=== PATIENT | female | born 1945 | race Caucasian/White ===

== ENCOUNTER 2017-01-18 19:09 | Emergency (ER) | payer OTHER, MEDICARE ==
[2017-01-18 19:33] VITALS: PULSE 60; TEMP 97.8; BMI 29.2
--- NOTE | 2017-01-18 20:14 | PDOC ---
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 The patient was laying down when she had a sudden onset of dizziness that felt as if the room was spinning. Patient endorses nausea and feeling as if she was going to faint. The patient states that she's been feeling better since being in the ED; she's never had this type of dizziness before. Denies any vomiting, LOC, head trauma, headache, weakness, numbness, tingling, slurred speech, confusion, or visual changes. PMD: Roxane Polanco MD ([facility]; [phone]) <Kristy Rojas - Last Filed: 01/18/17 21:11> <Светлана Jaramillo - Last Filed: 01/19/17 02:19> - General Stated Complaint: DIZZINESS Time Seen by Provider: 01/18/17 19:21 Past History <Kristy Rojas - Last Filed: 01/18/17 21:11> - Past Medical History Other medical history: Paris's Palsy for 15 yearswith residual lasting left sided facial droop. - Immunization History Immunization Up to Date: Yes - Psycho/Social/Smoking Cessation Hx Suicidal Ideation: No Smoking History: Former smoker Have you smoked in the past 12 months: No Information on smoking cessation initiated: No Hx Alcohol Use: No Drug/Substance Use Hx: No <Светлана Jaramillo - Last Filed: 01/19/17 02:19> - Past Medical History Allergies/Adverse Reactions: Allergies Allergy/AdvReac Type Severity Reaction Status Date / Time No Known Allergies Allergy Verified 01/18/17 20:12 Home Medications: Ambulatory Orders Meclizine HCl 25 mg PO QID PRN #20 tablet 01/18/17 Review of Systems - Review of Systems Comments:: 01/18/17 20:40 CONSTITUTIONAL: Absent: fever, chills, diaphoresis, generalized weakness, malaise, loss of appetite HEENT: Absent: rhinorrhea, nasal congestion, throat pain, throat swelling, difficulty swallowing, mouth swelling, ear pain, eye pain, visual changes CARDIOVASCULAR: Absent: chest pain, syncope, palpitations, irregular heart rate, lightheadedness , peripheral edema RESPIRATORY: Absent: cough, shortness of breath, dyspnea with exertion, orthopnea, wheezing, stridor, hemoptysis GASTROINTESTINAL: Present: nausea Absent: abdominal pain, abdominal distension, vomiting, diarrhea, constipation, melena, hematochezia GENITOURINARY: Absent: dysuria, frequency, urgency, hesitancy, hematuria, flank pain, genital pain MUSCULOSKELETAL: Absent: myalgia, arthralgia, joint swelling SKIN: Absent: rash, itching, pallor HEMATOLOGIC/IMMUNOLOGIC: Absent: easy bleeding, easy bruising, lymphadenopathy, frequent infections ENDOCRINE: Absent: unexplained weight gain, unexplained weight loss, heat intolerance, cold intolerance NEUROLOGIC: Present: dizziness Absent: headache, focal weakness or paresthesia, unsteady gait, seizure, mental status changes, bladder or bowel incontinence. PSYCHIATRIC: Absent: anxiety, depression, suicidal or homicidal ideation, hallucinations <Kristy Rojas - Last Filed: 01/18/17 21:11> *Physical Exam - Vital Signs Last Vital Signs Temp Pulse Resp BP Pulse Ox 97.8 F 60 20 182/68 99 01/18/17 19:28 01/18/17 19:28 01/18/17 19:28 01/18/17 19:28 01/18/17 19:28 - Physical Exam Comments: 01/18/17 20:41 GENERAL: Well developed, well nourished. Awake and alert. No acute distress. HEENT: Normocephalic, atraumatic. PERRLA, EOMI. No conjunctival pallor. Sclera are non- icteric. Moist mucous membranes. Oropharynx is clear. NECK: Supple. Full ROM. No JVD. Carotid pulses 2+ and symmetric, without bruits. No thyromegaly. No lymphadenopathy. CARDIOVASCULAR: Regular rate and rhythm. No murmurs, rubs, or gallops. Distal pulses are 2+ and symmetric. PULMONARY: No evidence of respiratory distress. Lungs clear to auscultation bilaterally. No wheezing, rales or rhonchi. ABDOMINAL: Soft. Non-tender. Non-distended. No rebound or guarding. No organomegaly. Normoactive bowel sounds. MUSCULOSKELETAL: Normal range of motion at all joints. No bony deformities or tenderness. No CVA tenderness. EXTREMITIES: No cyanosis. No clubbing. No edema. No calf tenderness. SKIN: Warm and dry. Normal capillary refill. No rashes. No jaundice. NEUROLOGICAL: Alert, awake, appropriate. Cranial nerves 2-12 intact. Chronic left sided facial droop. Normal speech. Gait is normal without ataxia. PSYCHIATRIC: Cooperative. Good eye contact. Appropriate mood and affect. <Kristy Rojas - Last Filed: 01/18/17 21:11> - Vital Signs Last Vital Signs Temp Pulse Resp BP Pulse Ox 97.8 F 60 20 182/68 99 01/18/17 19:28 01/18/17 19:28 01/18/17 19:28 01/18/17 19:28 01/18/17 19:28 <Светлана Jaramillo - Last Filed: 01/19/17 02:19> Heart Score/ECG Review #1 01/18/17 21:12 Normal sinus rhythm at 62 bpm Normal ECG <Kristy Rojas - Last Filed: 01/18/17 21:11> ED Treatment Course - LABORATORY CBC & Chemistry Diagram: 01/18/17 20:00 01/18/17 20:00 - ADDITIONAL ORDERS Additional order review: Laboratory Results 01/18/17 20:00 Urine Color Colorless Urine Appearance Clear Urine pH 8.0 Ur Specific Orrum 1.002 Urine Protein Negative Urine Glucose (UA) Negative Urine Ketones Negative Urine Blood Negative Urine Nitrite Negative Urine Bilirubin Negative Urine Urobilinogen Negative Ur Leukocyte Esterase Negative 01/18/17 20:00 RBC 4.68 MCV 85.1 MCHC 33.0 RDW 12.8 MPV 8.5 Neutrophils % 75.0 Lymphocytes % 13.4 Monocytes % 8.6 Eosinophils % 2.8 Basophils % 0.2 <Kristy Rojas - Last Filed: 01/18/17 21:11> - LABORATORY CBC & Chemistry Diagram: 01/18/17 20:00 01/18/17 20:00 <Светлана Jaramillo - Last Filed: 01/19/17 02:19> Medical Decision Making - Medical Decision Making 01/19/17 00:39 01/19/17 02:16 71 yo female has an episode of vertigo at 5:30 .She felt the "room spin" . -no slurred speech,no extremity weakness, no ataxia,alert and oriented x3, sensation intact -labs unremarkable ct scan ahead -meningioma and pt states that is chronic -pt's vertigo resolved. She ambulated with ease -RX meclizine sent to her pharmacy <Светлана Jaramillo - Last Filed: 01/19/17 02:19> *DC/Admit/Observation/Transfer - Attestations Scribe Attestion: 01/18/17 20:42 Documentation prepared by Kristy Rojas, acting as medical terminologist for Светлана Jaramillo MD. <Kristy Rojas - Last Filed: 01/18/17 21:11> <Светлана Jaramillo - Last Filed: 01/19/17 02:19> Diagnosis at time of Disposition: Vertigo - Discharge Dispostion Disposition: HOME Condition at time of disposition: Stable - Prescriptions Prescriptions: Meclizine HCl 25 mg PO QID PRN #20 tablet PRN Reason: Vertigo - Patient Instructions Printed Discharge Instructions: DI for Vertigo Additional Instructions: please picker and sorter load and unload your prescription at [facility]'s pharmacy Please followup with your physician this week Return to the emergency department for any worsening symptoms
[2017-01-18 20:24] LABS: BASOPHIL 0.2 % (0-2.0); EOSINOPHIL 2.8 % (0-4.5); MCH 28.1 pg (25.7-33.7); MEAN CELL VOLUME 85.1 fl (80-96); MEAN PLT VOLUME 8.5 fl (7.5-11.1); PLATELET COUNT 221 K/MM3 (134-434); RDW 12.8 % (11.6-15.6); WHITE BLOOD COUNT 9.7 K/mm3 (4.0-10.0)
[2017-01-18 20:25] LABS: URINE APPEARANCE CLEAR; URINE BILIRUBIN NEGATIVE (NEGATIVE); URINE BLOOD NEGATIVE (NEGATIVE); URINE COLOR COLORLESS; URINE GLUCOSE (UA) NEGATIVE (NEGATIVE); URINE KETONE NEGATIVE (NEGATIVE); URINE LEUK ESTERASE NEGATIVE (NEGATIVE); URINE NITRITE NEGATIVE (NEGATIVE); URINE PROTEIN NEGATIVE (NEGATIVE); URINE UROBILINOGEN NEGATIVE E.U./dl (0.2-1.0)
[2017-01-18 20:36] VITALS: BP 173/83
[2017-01-18 20:39] LABS: INR 1.01 (0.82-1.09); PROTHROMBIN TIME (PATIENT) 11.1 SEC (9.98-11.88)
[2017-01-18] MEDS ORDERED: MECLIZINE HCL 25 MG TABLET (FP) ONE (20:40)
[2017-01-18 20:48] LABS: ALBUMIN 3.3 g/dl (3.4-5.0); ANION GAP 8 (8-16); BILIRUBIN,TOTAL 0.2 mg/dL (0.2-1.0); CALCIUM 8.8 mg/dL (8.5-10.1); CO2 28 mmol/L (21-32); CREATININE 0.9 mg/dL (0.55-1.02); GLUCOSE,RANDOM 115 mg/dL (74-106); SGOT/AST 18 U/L (15-37); SGPT/ALT 25 U/L (12-78); TOT PROT 6.8 g/dl (6.4-8.2)
[2017-01-18 20:50] LABS: ALK PHOS 80 U/L (45-117); TROPONIN I 0.05 ng/ml (0.00-0.05)
--- NOTE | 2017-01-19 10:17 | EKG ---
Test Reason : Blood Pressure : / mmHG Vent. Rate : 062 BPM Atrial Rate : 062 BPM P-R Int : 156 ms QRS Dur : 078 ms QT Int : 402 ms P-R-T Axes : 065 054 059 degrees QTc Int : 408 ms NORMAL SINUS RHYTHM NORMAL ECG NO PREVIOUS ECGS AVAILABLE Confirmed by ANNY SCHULTE MD ([id number]) on 01/19/2017 10:17:25 AM Referred By: SOHA Confirmed By:ANNY SCHULTE MD
== END 2017-01-18 22:09 | disposition home or self-care (01) ==
LOC: JER 19:09
DX: R42 Dizziness and giddiness (principal); I10 Essential (primary) hypertension; G51.0 Bell's palsy
CPT/HCPCS: 36415; 70450-TC; 71010-TC; 80053; 81003; 82550; 84484; 85025; 85610; 86850; 86900; 86901; 87086; 93005; 93010; 99284-25